=== PATIENT | male | born 1955 | race Caucasian/White ===

== ENCOUNTER 2016-12-11 21:53 | Emergency (ER) | payer OTHER ==
--- NOTE | ~2016-12-11 | CR72 ---
[facility] A Service of [facility] & [facility] RADIOLOGY TEXT RESULTS PATIENT: RISA ADAM LOCATION: [facility] : 53 UNIT #: [id number] AGE: [address]: Sonny Lynch MD SEX: M ORDER DR: [id number] [facility] [address] [place], [place] [address] [id number] MR#: [id number] Acc #: [id number] NAME: RISA ADAM. : 1955 SEX: M STUDY DATE/TIME: UNIT: [facility] ROOM: STUDY DESCRIPTION: CR Chest Single View Portable Attending Physician: Sonny Lynch M.D. Ordering Physician: Sonny Lynch M.D. Primary Care Physician: [facility] MEDICAL IMAGING REPORT This report is preliminary unless electronic signature is present EXAM Chest portable 12/11 at 2203 hours INDICATIONS Syncope with shortness of air and weakness. Patient had syncopal episode at 09:00 p.m. this evening. History of coronary artery disease and hypertension. FINDINGS AP portable chest is compared with 11/02/2016. Cardiac and mediastinal contours remain normal. The lungs are clear. No pneumothorax. There is some mild atherosclerotic disease in the aorta. IMPRESSION No active disease. Dictated by... Lamberto Packer Jr., M.D. THIS IS AN ELECTRONICALLY VERIFIED REPORT Lamberto Packer Jr., M.D. at 12/12/2016 12:35 PM RLK/to TD: 12/12/2016 11:25 JOB #: [id number] MEDICAL IMAGING REPORT COPY
--- NOTE | ~2016-12-11 | EKG ---
PATIENT: RISA ADAM UNIT #: [id number] Ventricular Rate: 82 BPM Atrial Rate: 82 BPM P-R Interval: 162 ms QRS Duration: 90 ms Q-T Interval: 400 ms QTC Calculation(Bezet): 467 ms P [place]: 37 degrees Calculated R [place]: 32 degrees Calculated T [place]: 45 degrees Diagnosis Line: Normal sinus rhythm Diagnosis Line: Normal ECG Diagnosis Line: When compared with ECG of 02-NOV-2016 19:46, Diagnosis Line: No significant change was found Diagnosis Line: Confirmed by DEMETRICE SANCHEZ MD ([id number]) on Diagnosis Line: 12/13/2016 4:05:59 PM INTERPRETING MD: DANIEL MCCANN
--- NOTE | ~2016-12-11 | CT71 ---
[facility] A Service of [facility] RADIOLOGY TEXT RESULTS PATIENT: RISA ADAM LOCATION: [facility] : 53 UNIT #: [id number] AGE: [address]: Sonny Lynch MD SEX: M ORDER DR: [id number] [facility] [address] [place], [place] [address] [id number] E MR#: [id number] Acc #: [id number] NAME: RISA ADAM. : 1955 SEX: M STUDY DATE/TIME: 12/11/2016 2250 UNIT: [facility] ROOM: STUDY DESCRIPTION: CT Head Wo Contrast Attending Physician: Sonny Lynch M.D. Ordering Physician: Sonny Lynch M.D. [facility] REPORT This report is preliminary unless electronic signature is present EXAM Head CT 12/11/2016 at 22:50 INDICATIONS Syncopal episode 30 minutes prior to arrival at the Emergency Department today. History of cardiac disease, hypertension and stroke. TECHNIQUE Axial images were obtained from the base to vertex without contrast. This CT exam was performed with one or more of the following radiation dose reduction techniques: automatic exposure control, adjustment of mA and/or kV according to patient size, and iterative reconstruction. COMPARISON STUDIES Comparison is made with 11/02/2016. FINDINGS Ventricular size and configuration remain normal. There is mild degree of chronic small vessel ischemic change in the white matter. There is no acute infarct or hemorrhage. There are no masses. There are no skull fractures. There are some atherosclerotic calcifications in the carotid siphons. The previously seen fluid level in the left maxillary sinus has resolved. IMPRESSION No acute intracranial abnormalities. Exam is not significantly changed from prior except that the fluid level in the left maxillary sinus has resolved. Dictated by... Lamberto Packer Jr., M.D. [facility] A Service of [facility] RADIOLOGY TEXT RESULTS PATIENT: RISA ADAM LOCATION: [facility] : 53 UNIT #: [id number] AGE: [address]: Sonny Lynch MD SEX: M ORDER DR: THIS IS AN ELECTRONICALLY VERIFIED REPORT Lamberto Packer Jr., M.D. at 12/12/2016 12:35 PM SABAS/vladislav TD: 12/12/2016 11:49 JOB #: [id number] MEDICAL IMAGING REPORT COPY
[~2016-12-11 21:53] MED LIST: ALDACTAZIDE PO; AMITRIPTYLINE100 MG PO; AMITRYPTYLINE; AMITRYPTYLINE PO; ASPIRIN EC81 M1 PO; ASPIRIN81 M1 PO; ASPIRIN81 M2 PO; ATENOLOL50 MG PO; BP MED; BRILINTA90 MG PO; CARVEDILOL3.125 MG PO; CATAPRES-TTS-10.1 M1 EXT; CLOPIDOGREL75 MG PO; COREG3.125 MG PO; COREG6.25 MG PO; CYANOCOBALAM1000 MCG PO; DEPAKOTE PO; DEPAKOTE250 MG PO; DESYREL50 M1 PO; DESYREL50 MG PO; DIGOXIN125 MCG PO; DIVALPROEX SOD500 MG PO; DOXYCYCLINE PO; FISH OIL 1,0001 CA2 PO; FISH OIL 1,001000 M1 PO; FLEXERIL10 M1 PO; FLEXERIL10 MG PO; GABAPENTIN300 M2 PO; GABAPENTIN600 MG PO; GABAPENTIN800 MG PO; GLUCOPHAGE500 M1 PO; HCTZ; HYDROCHLOROTHIA25 MG PO; HYDROCODON-ACE1 EACH PO; IBUPROFEN; IBUPROFEN600 MG PO; IMDUR-ER30 M1 PO; IMDUR30 MG PO; IRON SUPPLEMENT1 TAB PO; K-DUR10 MEQ PO; KCL PO; LISINOPRIL-HCTZ1 T15 PO; LISINOPRIL10 MG PO; LISINOPRIL20 MG PO; LOPID600 MG PO; LORTAB 5/500 TA1 TA1 PO; LORTAB 7.5-5001 TAB PO; METFORMIN HCL500 M3 PO; MICRO-K10 ME1 PO; MOTRIN400 M1 PO; MOTRIN600 M1 PO; NAPROSYN500 MG PO; NAPROXEN PO; NEURONTIN; NEURONTIN800 MG PO; NICOTINE TRANSD14 MG EXT; NITROGLYCERIN0.4 MG SL; NITROGLYGERIN0.4 MG SL; NITROSTAT0.4 MG SL; PLAVIX PO; POTASSIUM CHLO10 ME1 PO; POTASSIUM CHLO20 ME1 PO; PRAVASTATIN SOD40 MG PO; SIMVASTATIN20 MG PO; TENORMIN50 MG PO; TRAMADOL HCL50 M2 PO; ULTRAM PO; VITAMIN B122500 MCG PO; VOLTAREN75 MG PO
[2016-12-11 22:05] LABS: BASOPHIL# 0.1 X10e3 (0-0.3); BASOPHIL% 0.9 % (0-2.5); EOSINOPHIL# 0.1 X10e3 (0-0.7); EOSINOPHIL% 1.7 % (0.0-7.0); HEMATOCRIT 40.9 % (38.0-50.0); HEMOGLOBIN 13.2 gm/dL (13.0-16.0); LYMPHOCYTE# 1.5 X10e3 (1.0-3.5); LYMPHOCYTE% 18.8 % (17.0-45.0); MEAN CELL VOLUME 75.4 FL (83-96); MEAN CORPUSCULAR HEMOGLOBIN 24.3 PG (28-34); MEAN CORPUSCULAR HGB CONC 32.3 g/dL (30-36); MONOCYTE# 0.7 X10e3 (0-1.0); MONOCYTE% 8.8 % (3.0-12.0); NEUTROPHIL# 5.4 X10e3 (1.5-7.1); NEUTROPHIL% 69.8 % (40-75); PLATELET COUNT 207 X10e3 (140-420); RED BLOOD COUNT 5.43 X10e (3.90-5.60); RED CELL DISTRIBUTION WIDTH 18.5 % (11.0-15.5); WHITE BLOOD COUNT 7.8 X10e3 (4.0-10.5)
[2016-12-11 22:11] LABS: POC - TROPONIN <0.05 ng/mL (<=0.05)
[2016-12-11 22:12] LABS: DIFF IND NO
[2016-12-11 22:21] LABS: PARTIAL THROMBOPLASTIN TIME 25.4 SECONDS (23.5-31.3)
[2016-12-11 22:28] LABS: ALBUMIN SERUM 4.6 g/dL (3.5-5.0); ALCOHOL BLOOD <5 mg/dL (0); ALKALINE PHOSPHATASE 90 U/L (32-92); ALT (SGPT) 26 U/L (10-40); AST (SGOT) 27 U/L (10-42); BILIRUBIN, DIRECT 0.1 mg/dL (0.0-0.2); BILIRUBIN,INDIRECT 0.6 mg/dL (0.0-0.9); BILIRUBIN,TOTAL 0.7 mg/dL (0.2-2.0); BLOOD UREA NITROGEN 9 mg/dL (9-23); BUN/CREATININE RATIO 11.25; CALCIUM SERUM 9.5 mg/dL (8.4-10.2); CARBON DIOXIDE 27 mmol/L (22-31); CHLORIDE 100 mmol/L (100-111); CREATININE SERUM 0.8 mg/dL (0.6-1.4); GLOM FILT RATE Estimated ABOVE60 mL/min (>60); GLUCOSE FASTING 106 mg/dL (70-110); POTASSIUM 3.7 mmol/L (3.5-5.1); PROTEIN TOTAL SERUM 7.8 g/dL (6.0-8.3); SODIUM 136 mmol/L (135-145)
[2016-12-12 00:05] LABS: AMPHETAMINE NEG (NEG); BARBITURATES NEG (NEG); BENZODIAZEPINES NEG (NEG); COCAINE NEG (NEG); MARIJUANA NEG (NEG); OPIATES NEG (NEG); TRICYCLIC ANTIDEPRESSANTS NEG (NEG); U METHADONE NEG (NEG)
[2016-12-12 00:20] LABS: POC - CKMB 1.9 ng/mL (0.0-7.9); POC - TROPONIN <0.05 ng/mL (<=0.05)
== END 2016-12-12 00:20 | disposition home or self-care (01) ==
LOC: CED 21:53
PROVIDERS: Emergency Medicine
DX: R55 Syncope and collapse (principal); I10 Essential (primary) hypertension; F31.9 Bipolar disorder, unspecified; F17.210 Nicotine dependence, cigarettes, uncomplicated; Z88.0 Allergy status to penicillin; Z88.1 Allergy status to other antibiotic agents; Z79.82 Long term (current) use of aspirin; Z79.899 Other long term (current) drug therapy
CPT/HCPCS: 36415; 70450; 71010; 80048; 80076; 80307; 82553; 82947; 84484; 85025; 85610; 85730; 93005; 96360; 99284; G0480

== ENCOUNTER 2017-03-19 00:26 | Emergency (ER) | payer OTHER ==
--- NOTE | ~2017-03-19 | EKG ---
PATIENT: RISA ADAM UNIT #: [id number] Ventricular Rate: 88 BPM Atrial Rate: 88 BPM P-R Interval: 196 ms QRS Duration: 92 ms Q-T Interval: 400 ms QTC Calculation(Bezet): 484 ms P [place]: 33 degrees Calculated R [place]: 25 degrees Calculated T [place]: 23 degrees Diagnosis Line: Normal sinus rhythm Diagnosis Line: Prolonged QT Diagnosis Line: Abnormal ECG Diagnosis Line: When compared with ECG of 11-DEC-2016 22:23, Diagnosis Line: No significant change was found Diagnosis Line: Confirmed by MEGHANN URIBE MD ([id number]) on 03/19/2017 Diagnosis Line: 4:49:56 PM INTERPRETING MD: RONY MCCANN
--- NOTE | ~2017-03-19 | CR72 ---
[facility] A Service of [facility] & [facility] RADIOLOGY TEXT RESULTS PATIENT: RISA ADAM LOCATION: [facility] : 53 UNIT #: [id number] AGE: [address]: Bran Mack SEX: M ORDER DR: [id number] [facility] [address] [place], [place] [address] [id number] E MR#: [id number] Acc #: [id number] NAME: RISA ADAM : 1955 SEX: M STUDY DATE/TIME: 03/19/2017 2:38 UNIT: [facility] ROOM: STUDY DESCRIPTION: CR Chest Single View Portable Attending Physician: Bran Mack P.A.-C. Ordering Physician: Bran Mack P.A.-C. Primary Care Physician: [facility] MEDICAL IMAGING REPORT This report is preliminary unless electronic signature is present EXAM Portable chest HISTORY Chest pain since 8 a.m. yesterday 03/19 COMPARISON 12/11/2016 FINDINGS A portable view of the chest was obtained. The heart size and vascularity and the lungs are clear and the bones are normal. IMPRESSION No active disease. Dictated by... Philip Sellers M.D. THIS IS AN ELECTRONICALLY VERIFIED REPORT Philip Sellers M.D. at 03/19/2017 1:52 PM FEL/to TD: 03/19/2017 12:10 JOB #: [id number] MEDICAL IMAGING REPORT Page 1 of 1 COPY
[2017-03-19 02:37] LABS: BASOPHIL# 0.1 X10e3 (0-0.3); BASOPHIL% 0.8 % (0-2.5); EOSINOPHIL# 0.1 X10e3 (0-0.7); EOSINOPHIL% 1.2 % (0.0-7.0); HEMATOCRIT 39.8 % (38.0-50.0); HEMOGLOBIN 12.6 gm/dL (13.0-16.0); LYMPHOCYTE# 1.8 X10e3 (1.0-3.5); LYMPHOCYTE% 23.4 % (17.0-45.0); MEAN CELL VOLUME 77.7 FL (83-96); MEAN CORPUSCULAR HEMOGLOBIN 24.6 PG (28-34); MEAN CORPUSCULAR HGB CONC 31.7 g/dL (30-36); MEAN PLATELET VOLUME 8.3 FL (6.5-11.5); MONOCYTE# 0.6 X10e3 (0-1.0); NEUTROPHIL# 5.1 X10e3 (1.5-7.1); NEUTROPHIL% 66.6 % (40-75); PLATELET COUNT 176 X10e3 (140-420); RED BLOOD COUNT 5.12 X10e (3.90-5.60); RED CELL DISTRIBUTION WIDTH 17.4 % (11.0-15.5); WHITE BLOOD COUNT 7.6 X10e3 (4.0-10.5)
[2017-03-19 02:47] LABS: DIFF IND NO
[2017-03-19 02:48] LABS: POC - CKMB 2.4 ng/mL (0.0-7.9); POC - TROPONIN <0.05 ng/mL (<=0.05)
[2017-03-19 02:52] LABS: PARTIAL THROMBOPLASTIN TIME 25.7 SECONDS (23.5-31.3)
[2017-03-19 03:00] LABS: ALBUMIN SERUM 4.3 g/dL (3.5-5.0); ALKALINE PHOSPHATASE 81 U/L (32-92); ALT (SGPT) 37 U/L (10-40); AST (SGOT) 27 U/L (10-42); BILIRUBIN,TOTAL 0.4 mg/dL (0.2-2.0); BLOOD UREA NITROGEN 9 mg/dL (9-23); BUN/CREATININE RATIO 11.25; CALCIUM SERUM 9.5 mg/dL (8.4-10.2); CARBON DIOXIDE 25 mmol/L (22-31); CHLORIDE 108 mmol/L (100-111); CREATININE SERUM 0.8 mg/dL (0.6-1.4); GLOM FILT RATE Estimated 95.1 mL/min (>60); GLUCOSE FASTING 127 mg/dL (70-110); MAGNESIUM 2.2 mg/dL (1.6-3.0); POTASSIUM 3.6 mmol/L (3.5-5.1); PROTEIN TOTAL SERUM 7.2 g/dL (6.0-8.3); SODIUM 139 mmol/L (135-145)
[2017-03-19 03:01] LABS: BILIRUBIN, DIRECT <0.1 mg/dL (0.0-0.2); BILIRUBIN,INDIRECT 0.3 mg/dL (0.0-0.9)
[2017-03-19 04:40] LABS: POC - CKMB 1.7 ng/mL (0.0-7.9); POC - TROPONIN <0.05 ng/mL (<=0.05)
== END 2017-03-19 05:58 | disposition home or self-care (01) ==
LOC: CED 00:26
PROVIDERS: Physician Assistant
DX: R07.89 Other chest pain (principal); E78.5 Hyperlipidemia, unspecified; I10 Essential (primary) hypertension; I25.2 Old myocardial infarction; F17.210 Nicotine dependence, cigarettes, uncomplicated; Z88.0 Allergy status to penicillin; Z88.1 Allergy status to other antibiotic agents; Z79.899 Other long term (current) drug therapy
CPT/HCPCS: 36415; 71010; 80048; 80076; 82553; 83735; 83880; 84484; 85025; 85610; 85730; 93005; 99285

== ENCOUNTER 2017-03-25 16:34 | Inpatient (IN) | payer OTHER ==
--- NOTE | ~2017-03-25 | HP ---
Unit #: [id number] #: [id number] Patient: RISA ADAM [id number] [facility]. [address] [place], [place] [address] [id number] I MR#: [id number] NAME: RISA ADAM. ROOM: 304 Age: 61 Sex: M Admission Date: 03/25/2017 : 1955 Attending Physician: Jl Figueredo M.D. Primary Care Physician: [facility]. HISTORY AND PHYSICAL CHIEF COMPLAINT Chest pain. HISTORY OF PRESENT ILLNESS This is a 61-year-old male who is known to Dr. Delong with a prior medical history of coronary artery disease, status post PTCA and stent to his RCA in December 2011. His most recent cardiac cath done on February 29, 2016, showed normal left main, LAD proximal 40%, left circumflex one-third marginal with plaquing, mid RCA 75% with a fractionated flow reserve of 0.84. The patient was treated medically. He also has a history of hypertension, hyperlipidemia, diabetes mellitus, tobacco abuse, and a prior CVA. In addition, he has a history of syncope with a positive tilt table. An echocardiogram done in January 2014 showed his EF to be 60% with no wall abnormalities and mild mitral regurgitation. He presented to the ER with chest pain. He states that Monday night he had some chest tightness that he thought was indigestion, and it resolved with Zantac. Monday afternoon he was walking in his living room and he broke out in a sweat. In addition, he had nausea and midsternal chest pressure that spread into his left chest. He called EMS and presented to the ER. His chest pain resolved in the ER with nitroglycerin and has not recurred since then. His troponins are elevated. His most recent troponin was 1.2. His EKG showed no acute ischemic changes. PAST MEDICAL HISTORY 1. Coronary artery disease, status post PTCA and stent to the RCA in December 2011. 2. Cardiac cath on February 29, 2016, showed left main normal, LAD proximal 40%, left circumflex one-third marginal with plaquing, and mid RCA 75% with FFR 0.84. 3. Hypertension. 4. Hyperlipidemia. 5. Diabetes mellitus. 6. Tobacco abuse. 7. Cerebrovascular accident. 8. Bipolar disorder. 9. Syncope with positive tilt table. 10. Lexiscan Cardiolite stress test on October 16, 2015, showed no stress-induced ischemia. PAST SURGICAL HISTORY 1. Right leg surgery. 2. Left hand surgery. 3. Tonsillectomy. Unit #: [id number] #: [id number] Patient: RISA ADAM 4. Multiple skin grafts. 5. Cardiac catheterization with PTCA and drug-eluting stent. SOCIAL HISTORY Patient is and lives with his . He has smoked a half pack to one pack per day for 48 years. Occasional alcohol use. Denies illicit drug use. FAMILY HISTORY Denies a family history of premature coronary artery disease. ALLERGIES Penicillin and amoxicillin. HOME MEDICATIONS 1. Aspirin 81 mg once daily. 2. Desyrel 50 mg p.o. at bedtime. 3. Norvasc 5 mg p.o. at bedtime. 4. Lisinopril 40 mg daily. 5. Coreg 25 mg twice daily. 6. Gabapentin 300 mg twice daily. 7. Plavix 75 mg p.o. daily. 8. Pravastatin 40 mg p.o. daily. 9. Lasix 40 mg p.o. daily. REVIEW OF SYSTEMS Positive for nausea, diaphoresis, chest pain, weakness, and fatigue. Otherwise, negative except for what was stated in the History of Present Illness. PHYSICAL EXAMINATION VITAL SIGNS: Temperature 98.5, heart rate 68, respiratory rate 16, O2 saturation 98% on two liters, and blood pressure 98/56. Height 61 inches, weight 104 kg. GENERAL: Alert and oriented 61-year-old male resting in bed in no acute distress. HEENT: Head is atraumatic and normocephalic. Pupils are equal and round. Mucous membranes are moist. NECK: Supple. Trachea is midline. Negative for JVD. CARDIOVASCULAR: S1 and S2, regular rate and rhythm. Heart tones are very distant. LUNGS: Clear and diminished in bases. Nonlabored respirations. ABDOMEN: Soft, nontender, and nondistended. EXTREMITIES: Pulses are palpable 1+. No pedal edema. No cyanosis. NEUROLOGIC: Alert and oriented x3. Moves all extremities equally and follows commands without difficulty. DIAGNOSTIC STUDIES LABORATORY: Sodium 136, potassium 3.3, chloride 104, BUN 15, creatinine 0.8, and glucose 155. Hemoglobin 11.7, hematocrit 37, white blood cell count 7.4, and platelets 161,000. PT 10.5 and INR 1. AST 28, ALT 38, and alkaline phosphatase 91. BNP 9. Point of care troponin less than 0.05. Troponin on March 25, 2017, at 8 p.m., was 0.13, at midnight 0.8, and on March 26, 2017, was 1.2. IMAGING: Chest x-ray showed no acute findings. CARDIOLOGY: EKG in the ER showed sinus tachycardia with ventricular rate Unit #: [id number] #: [id number] Patient: RISA ADAM T of 102 and nonspecific T wave abnormalities. EKG on March 26, 2017, showed normal sinus rhythm with nonspecific T wave abnormalities. ASSESSMENT 1. Acute non-ST segment myocardial infarction. 2. Hypokalemia. 3. Coronary artery disease, status post percutaneous transluminal coronary angioplasty and stent to right coronary artery. 4. Left ventricular ejection fraction 60% per echocardiogram in January 2014. 5. Hyperlipidemia. 6. Diabetes mellitus. 7. History of hypertension, now hypotensive. 8. Tobacco abuse, heavy smoker. PLAN 1. Send for cardiac cath. 2. Discontinue Norvasc. 3. Continue heparin drip. 4. Start Integrilin drip. 5. Replace potassium. 6. Check lipid profile. 7. CBC, BMP, troponin, and EKG in the a.m. 8. Discuss smoking cessation with patient. 9. Continue aspirin, Plavix, Lasix, statin, beta ch[place], and nitroglycerin paste as previously ordered. 1. Dictated by Pebbles Ramírez APRN for Jonelle Fontana TD: 03/26/2017 14:11 JOB #: [id number] HISTORY AND PHYSICAL Page 1 of 1 X X HISTORY AND PHYSICAL
--- NOTE | ~2017-03-25 | EKG ---
PATIENT: RISA ADAM UNIT #: [id number] Ventricular Rate: 68 BPM Atrial Rate: 68 BPM P-R Interval: 202 ms QRS Duration: 88 ms Q-T Interval: 438 ms QTC Calculation(Bezet): 465 ms P [place]: 41 degrees Calculated R [place]: 38 degrees Calculated T [place]: 41 degrees Diagnosis Line: Normal sinus rhythm Diagnosis Line: Normal ECG Diagnosis Line: When compared with ECG of 27-MAR-2017 05:48, Diagnosis Line: (unconfirmed) Diagnosis Line: No significant change was found Diagnosis Line: Confirmed by KELIN UGALDE MD ([id number]) on Diagnosis Line: 03/27/2017 10:10:28 PM INTERPRETING MD: YARITZA
--- NOTE | ~2017-03-25 | EKG ---
PATIENT: RISA ADAM UNIT #: [id number] Ventricular Rate: 70 BPM Atrial Rate: 70 BPM P-R Interval: 198 ms QRS Duration: 84 ms Q-T Interval: 408 ms QTC Calculation(Bezet): 440 ms P [place]: 46 degrees Calculated R [place]: 25 degrees Calculated T [place]: 27 degrees Diagnosis Line: Normal sinus rhythm Diagnosis Line: Normal ECG Diagnosis Line: When compared with ECG of 27-MAR-2017 09:48, Diagnosis Line: No significant change was found Diagnosis Line: Confirmed by KELIN UGALDE MD ([id number]) on Diagnosis Line: 03/28/2017 10:40:36 PM INTERPRETING MD: YARITZA
--- NOTE | ~2017-03-25 | EKG ---
PATIENT: RISA ADAM UNIT #: [id number] Ventricular Rate: 68 BPM Atrial Rate: 68 BPM P-R Interval: 194 ms QRS Duration: 84 ms Q-T Interval: 446 ms QTC Calculation(Bezet): 474 ms P [place]: 34 degrees Calculated R [place]: 26 degrees Calculated T [place]: 49 degrees Diagnosis Line: Normal sinus rhythm Diagnosis Line: Nonspecific T wave abnormality Diagnosis Line: Prolonged QT Diagnosis Line: Abnormal ECG Diagnosis Line: When compared with ECG of 25-MAR-2017 16:45, Diagnosis Line: (unconfirmed) Diagnosis Line: Vent. rate has decreased BY 34 BPM Diagnosis Line: ST no longer depressed in Lateral leads Diagnosis Line: Nonspecific T wave abnormality has replaced Diagnosis Line: inverted T waves in Lateral leads Diagnosis Line: Confirmed by MELONIE MCCANN, BRI ([id number]) on Diagnosis Line: 03/26/2017 11:11:22 AM INTERPRETING MD: HONORIO
--- NOTE | ~2017-03-25 | EKG ---
PATIENT: RISA ADAM UNIT #: [id number] Ventricular Rate: 76 BPM Atrial Rate: 76 BPM P-R Interval: 202 ms QRS Duration: 90 ms Q-T Interval: 428 ms QTC Calculation(Bezet): 481 ms P [place]: 58 degrees Calculated R [place]: 15 degrees Calculated T [place]: 14 degrees Diagnosis Line: Normal sinus rhythm Diagnosis Line: Prolonged QT Diagnosis Line: Abnormal ECG Diagnosis Line: When compared with ECG of 26-MAR-2017 05:49, Diagnosis Line: No significant change was found Diagnosis Line: Confirmed by KELIN UGALDE MD ([id number]) on Diagnosis Line: 03/27/2017 10:09:04 PM INTERPRETING MD: YARITZA
--- NOTE | ~2017-03-25 | CR72 ---
[facility] A Service of [facility] & [facility] RADIOLOGY TEXT RESULTS PATIENT: RISA ADAM LOCATION: [facility] 304- : 53 UNIT #: [id number] AGE: [address]: Jl Figueredo MD SEX: M ORDER DR: [id number] [facility] [address] [place], [place] [address] [id number] I MR#: [id number] Acc #: [id number] NAME: RISA ADAM. : 1955 SEX: M STUDY DATE/TIME: 03/25/2017 17:31 UNIT: [address] ROOM: [facility] STUDY DESCRIPTION: CR Chest Single View Portable Attending Physician: Jl Figueredo M.D. Referring Physician: Kirt Bishop M.D. Ordering Physician: Irving Justice M.D. [facility] REPORT This report is preliminary unless electronic signature is present EXAM Portable chest. HISTORY Chest pain and shortness of air and weakness since yesterday. FINDINGS Cardiac size and pulmonary vascularity are normal. Mildly tortuous descending thoracic aorta. No airspace infiltrates or effusions. IMPRESSION No acute findings. Dictated by... Patrice Pedro M.D. THIS IS AN ELECTRONICALLY VERIFIED REPORT Patrice Pedro M.D. at 03/25/2017 10:53 PM GERONIMO/rai TD: 03/25/2017 22:24 JOB #: [id number] MEDICAL IMAGING REPORT Page 1 of 1 COPY
--- NOTE | ~2017-03-25 | EKG ---
PATIENT: RISA ADAM UNIT #: [id number] Ventricular Rate: 102 BPM Atrial Rate: 102 BPM P-R Interval: 164 ms QRS Duration: 86 ms Q-T Interval: 346 ms QTC Calculation(Bezet): 450 ms P [place]: 40 degrees Calculated R [place]: 29 degrees Calculated T [place]: 110 degrees Diagnosis Line: Sinus tachycardia Diagnosis Line: Possible Left atrial enlargement Diagnosis Line: ST and T wave abnormality, consider lateral ischemia Diagnosis Line: Abnormal ECG Diagnosis Line: When compared with ECG of 19-MAR-2017 01:02, Diagnosis Line: ST now depressed in Lateral leads Diagnosis Line: T wave inversion now evident in Lateral leads Diagnosis Line: Confirmed by BRI WILHELM MD ([id number]) on Diagnosis Line: 03/26/2017 11:08:32 AM INTERPRETING MDKathleen OLMEDO
[2017-03-25 17:33] LABS: POC - CKMB 2.9 ng/mL (0.0-7.9); POC - TROPONIN <0.05 ng/mL (<=0.05)
[2017-03-25 17:48] LABS: BASOPHIL# 0.1 X10e3 (0-0.3); BASOPHIL% 0.7 % (0-2.5); EOSINOPHIL# 0.1 X10e3 (0-0.7); EOSINOPHIL% 0.7 % (0.0-7.0); HEMATOCRIT 41.2 % (38.0-50.0); HEMOGLOBIN 13.2 gm/dL (13.0-16.0); LYMPHOCYTE# 1.1 X10e3 (1.0-3.5); LYMPHOCYTE% 12.5 % (17.0-45.0); MEAN CELL VOLUME 77.6 FL (83-96); MEAN CORPUSCULAR HEMOGLOBIN 24.8 PG (28-34); MEAN CORPUSCULAR HGB CONC 31.9 g/dL (30-36); MEAN PLATELET VOLUME 8.4 FL (6.5-11.5); MONOCYTE# 0.6 X10e3 (0-1.0); MONOCYTE% 6.9 % (3.0-12.0); NEUTROPHIL% 79.2 % (40-75); PLATELET COUNT 176 X10e3 (140-420); RED BLOOD COUNT 5.32 X10e (3.90-5.60); RED CELL DISTRIBUTION WIDTH 17.5 % (11.0-15.5); WHITE BLOOD COUNT 8.8 X10e3 (4.0-10.5)
[2017-03-25 17:50] LABS: DIFF IND NO
[2017-03-25 17:54] LABS: PARTIAL THROMBOPLASTIN TIME 26.6 SECONDS (23.5-31.3); PROTHROMBIN TIME (PATIENT) 10.5 SECONDS (10.0-11.7)
[2017-03-25 18:20] LABS: ALBUMIN SERUM 4.7 g/dL (3.5-5.0); BILIRUBIN, DIRECT 0.1 mg/dL (0.0-0.2); BILIRUBIN,TOTAL 1.1 mg/dL (0.2-2.0); BUN/CREATININE RATIO 18.75; CALCIUM SERUM 9.3 mg/dL (8.4-10.2); CREATININE SERUM 0.8 mg/dL (0.6-1.4); GLOM FILT RATE Estimated 95.1 mL/min (>60); POTASSIUM 3.3 mmol/L (3.5-5.1); PROTEIN TOTAL SERUM 7.5 g/dL (6.0-8.3)
[2017-03-25 19:13] LABS: POC - CKMB 1.9 ng/mL (0.0-7.9); POC - TROPONIN <0.05 ng/mL (<=0.05)
[2017-03-25] MEDS ORDERED: PRAVASTATIN SOD40 MG PO (19:52)
[2017-03-25] MEDS ORDERED: CARVEDILOL25 MG PO (19:52)
[2017-03-25] MEDS ORDERED: CLOPIDOGREL75 MG PO (19:52)
[2017-03-25] MEDS ORDERED: AMLODIPINE BESYL5 MG PO (19:52)
[2017-03-25] MEDS ORDERED: CHEWABLE ASPIRI81 MG PO (19:52)
[2017-03-25] MEDS ORDERED: PRINIVIL40 MG PO (19:52)
[2017-03-25] MEDS ORDERED: DESYREL50 MG PO (19:52)
[2017-03-25] MEDS ORDERED: LASIX PO (19:52)
[2017-03-25] MEDS ORDERED: GABAPENTIN300 M2 PO (19:52)
[2017-03-26 03:39] LABS: BASOPHIL# 0.1 X10e3 (0-0.3); EOSINOPHIL# 0.1 X10e3 (0-0.7); EOSINOPHIL% 1.8 % (0.0-7.0); HEMOGLOBIN 11.7 gm/dL (13.0-16.0); LYMPHOCYTE# 1.6 X10e3 (1.0-3.5); LYMPHOCYTE% 22.1 % (17.0-45.0); MEAN CELL VOLUME 78.3 FL (83-96); MEAN CORPUSCULAR HEMOGLOBIN 24.8 PG (28-34); MEAN CORPUSCULAR HGB CONC 31.6 g/dL (30-36); MEAN PLATELET VOLUME 8.4 FL (6.5-11.5); MONOCYTE# 0.8 X10e3 (0-1.0); MONOCYTE% 10.9 % (3.0-12.0); NEUTROPHIL# 4.8 X10e3 (1.5-7.1); NEUTROPHIL% 64.2 % (40-75); PLATELET COUNT 161 X10e3 (140-420); RED BLOOD COUNT 4.73 X10e (3.90-5.60); RED CELL DISTRIBUTION WIDTH 17.9 % (11.0-15.5); WHITE BLOOD COUNT 7.4 X10e3 (4.0-10.5)
[2017-03-26 03:40] LABS: DIFF IND NO
[2017-03-26 09:43] LABS: CHOLESTEROL 192 mg/dL (0-200); HDL CHOLESTEROL 27 mg/dL (29-75); LDL CHOLESTEROL 115 mg/dL (-130); LDL/HDL RATIO 4 RATIO (0-4); TRIGLYCERIDES 249 mg/dL (10-160)
[2017-03-26 18:32] LABS: BASOPHIL# 0.1 X10e3 (0-0.3); BASOPHIL% 0.9 % (0-2.5); EOSINOPHIL# 0.2 X10e3 (0-0.7); EOSINOPHIL% 2.4 % (0.0-7.0); HEMATOCRIT 36.5 % (38.0-50.0); HEMOGLOBIN 11.7 gm/dL (13.0-16.0); LYMPHOCYTE# 1.9 X10e3 (1.0-3.5); LYMPHOCYTE% 26.4 % (17.0-45.0); MEAN PLATELET VOLUME 8.7 FL (6.5-11.5); MONOCYTE# 0.5 X10e3 (0-1.0); MONOCYTE% 7.5 % (3.0-12.0); NEUTROPHIL# 4.5 X10e3 (1.5-7.1); NEUTROPHIL% 62.8 % (40-75); PLATELET COUNT 188 X10e3 (140-420); RED BLOOD COUNT 4.68 X10e (3.90-5.60); RED CELL DISTRIBUTION WIDTH 17.8 % (11.0-15.5); WHITE BLOOD COUNT 7.2 X10e3 (4.0-10.5)
[2017-03-26 18:35] LABS: DIFF IND NO
[2017-03-27 02:43] LABS: HEMATOCRIT 34.2 % (38.0-50.0); HEMOGLOBIN 10.8 gm/dL (13.0-16.0); MEAN CELL VOLUME 78.7 FL (83-96); MEAN CORPUSCULAR HEMOGLOBIN 24.8 PG (28-34); MEAN CORPUSCULAR HGB CONC 31.5 g/dL (30-36); MEAN PLATELET VOLUME 8.4 FL (6.5-11.5); RED BLOOD COUNT 4.34 X10e (3.90-5.60); RED CELL DISTRIBUTION WIDTH 17.3 % (11.0-15.5); WHITE BLOOD COUNT 6.5 X10e3 (4.0-10.5)
[2017-03-27 03:18] LABS: BUN/CREATININE RATIO 23.75; CALCIUM SERUM 8.7 mg/dL (8.4-10.2); CREATININE SERUM 0.8 mg/dL (0.6-1.4); GLOM FILT RATE Estimated 95.1 mL/min (>60); POTASSIUM 3.5 mmol/L (3.5-5.1)
[2017-03-27 18:38] LABS: INR 0.9; PARTIAL THROMBOPLASTIN TIME 25.4 SECONDS (23.5-31.3)
[2017-03-27 19:13] LABS: ANGIO %MB 1.5 % (0.0-4.0); ANGIO MB 4.9 ng/ml
[2017-03-28 01:44] LABS: BUN/CREATININE RATIO 16.25; CALCIUM SERUM 8.8 mg/dL (8.4-10.2); CREATININE SERUM 0.8 mg/dL (0.6-1.4); GLOM FILT RATE Estimated 95.1 mL/min (>60); POTASSIUM 3.9 mmol/L (3.5-5.1)
[2017-03-28 02:06] LABS: ANGIO %MB 1.2 % (0.0-4.0)
[2017-03-28] MEDS ORDERED: LIPITOR40 MG PO (10:16)
== END 2017-03-28 13:53 | disposition home or self-care (01) | DRG 247 ==
LOC: CED 16:34 → CEDOF 19:10 → CED 19:37 → CEDOF 19:37 → C3A PCU 19:37 → CEDOF 21:52 → C3A PCU 21:52 → CEDOF 03-26 10:00 → C3A PCU 03-26 10:00 → CED 03-26 10:00 → C5C 03-27 12:39
PROVIDERS: Emergency Medicine; Internal Medicine Cardiovascular Disease; Internal Medicine Interventional Cardiology
PROC: 027034Z Dilation of Coronary Artery, One Artery with Drug-eluting Intraluminal Device, Percutaneous Approach (ICD-10-PCS; principal; 2017-03-27)
DX: I21.4 Non-ST elevation (NSTEMI) myocardial infarction (principal); I10 Essential (primary) hypertension; F17.210 Nicotine dependence, cigarettes, uncomplicated; E78.5 Hyperlipidemia, unspecified; F31.9 Bipolar disorder, unspecified; J44.9 Chronic obstructive pulmonary disease, unspecified; Z86.73 Personal history of transient ischemic attack (TIA), and cerebral infarction without residual deficits; E11.9 Type 2 diabetes mellitus without complications; Z88.0 Allergy status to penicillin; Z79.02 Long term (current) use of antithrombotics/antiplatelets; Z79.82 Long term (current) use of aspirin; E87.6 Hypokalemia; Z71.6 Tobacco abuse counseling
CPT/HCPCS: 36415; 71010; 80048; 80061; 80076; 82550; 82553; 83880; 84484; 85025; 85027; 85347; 85610; 85730; 93005; 99285; C1725; C1769; C1874; C1894; J0360; J0461; J1170; J1327; J1644; J2250; J2405; J3010

== ENCOUNTER 2017-05-21 01:52 | Emergency (ER) | payer OTHER ==
--- NOTE | ~2017-05-21 | EKG ---
PATIENT: RISA ADAM UNIT #: [id number] Ventricular Rate: 98 BPM Atrial Rate: 98 BPM P-R Interval: 182 ms QRS Duration: 82 ms Q-T Interval: 374 ms QTC Calculation(Bezet): 477 ms P [place]: 42 degrees Calculated R [place]: 31 degrees Calculated T [place]: 25 degrees Diagnosis Line: Normal sinus rhythm Diagnosis Line: Possible Left atrial enlargement Diagnosis Line: Borderline ECG Diagnosis Line: When compared with ECG of 28-MAR-2017 06:47, Diagnosis Line: No significant change was found Diagnosis Line: Confirmed by MEGHANN URIBE MD ([id number]) on 05/21/2017 Diagnosis Line: 3:10:15 PM INTERPRETING MD: RONY MCCANN
--- NOTE | ~2017-05-21 | CR72 ---
[facility] A Service of [facility] & [facility] RADIOLOGY TEXT RESULTS PATIENT: RISA ADAM LOCATION: [facility] : 51 UNIT #: [id number] AGE: [address]: DANIEL THOMSON SEX: M ORDER DR: [id number] [facility] [address] [place], [place] [address] [id number] E MR#: [id number] Acc #: [id number] NAME: RISA ADAM. : 1955 SEX: M STUDY DATE/TIME: 05/21/2017 04:16 UNIT: [facility] ROOM: STUDY DESCRIPTION: CR Chest Single View Portable Attending Physician: Daniel Thomson Aprn Ordering Physician: Daniel Thomson Aprn Primary Care Physician: [facility], MEDICAL IMAGING REPORT This report is preliminary unless electronic signature is present EXAM Portable chest 05/21 at 04:16 INDICATIONS Left side chest pain today. FINDINGS AP portable chest is compared with 03/25/2017. Heart is enlarged. Lung volumes are low but the lungs are clear. No pneumothorax. There is atherosclerotic disease in the aorta. IMPRESSION Mild cardiomegaly with low lung volumes. No acute findings in the chest. Dictated by... Lamberto Packer Jr., M.D. THIS IS AN ELECTRONICALLY VERIFIED REPORT Lamberto Packer Jr., M.D. at 05/22/2017 3:15 AM NENAK/jeremias TD: 05/21/2017 21:56 JOB #: [id number] MEDICAL IMAGING REPORT Page 1 of 1 COPY
[~2017-05-21 01:52] MED LIST changes: +AMLODIPINE BESYL5 MG PO; +CARVEDILOL25 MG PO; +CHEWABLE ASPIRI81 MG PO; +LASIX PO; +LIPITOR40 MG PO; +PRINIVIL40 MG PO
[2017-05-21 03:42] LABS: BASOPHIL# 0.1 X10e3 (0-0.3); EOSINOPHIL# 0.1 X10e3 (0-0.7); EOSINOPHIL% 1.7 % (0.0-7.0); HEMATOCRIT 35.6 % (38.0-50.0); HEMOGLOBIN 11.5 gm/dL (13.0-16.0); LYMPHOCYTE# 1.7 X10e3 (1.0-3.5); LYMPHOCYTE% 20.7 % (17.0-45.0); MEAN CELL VOLUME 76.8 FL (83-96); MEAN CORPUSCULAR HEMOGLOBIN 24.8 PG (28-34); MEAN CORPUSCULAR HGB CONC 32.3 g/dL (30-36); MEAN PLATELET VOLUME 8.2 FL (6.5-11.5); MONOCYTE# 0.7 X10e3 (0-1.0); MONOCYTE% 8.1 % (3.0-12.0); NEUTROPHIL# 5.6 X10e3 (1.5-7.1); NEUTROPHIL% 68.5 % (40-75); PLATELET COUNT 183 X10e3 (140-420); RED BLOOD COUNT 4.63 X10e (3.90-5.60); WHITE BLOOD COUNT 8.2 X10e3 (4.0-10.5)
[2017-05-21 03:44] LABS: DIFF IND NO
[2017-05-21 03:57] LABS: PARTIAL THROMBOPLASTIN TIME 25.4 SECONDS (23.5-31.3); PROTHROMBIN TIME (PATIENT) 10.5 SECONDS (10.0-11.7)
[2017-05-21 04:09] LABS: ALBUMIN SERUM 4.3 g/dL (3.5-5.0); BILIRUBIN,TOTAL 0.5 mg/dL (0.2-2.0); BUN/CREATININE RATIO 17.14; CALCIUM SERUM 9.3 mg/dL (8.4-10.2); CREATININE SERUM 0.7 mg/dL (0.6-1.4); GLOM FILT RATE Estimated 100.5 mL/min (>60); POTASSIUM 3.6 mmol/L (3.5-5.1); PROTEIN TOTAL SERUM 6.9 g/dL (6.0-8.3)
[2017-05-21 04:10] LABS: BILIRUBIN, DIRECT 0.1 mg/dL (0.0-0.2); BILIRUBIN,INDIRECT 0.4 mg/dL (0.0-0.9)
[2017-05-21 04:47] LABS: POC - CKMB 2.4 ng/mL (0.0-7.9); POC - TROPONIN <0.05 ng/mL (<=0.05)
== END 2017-05-21 05:00 | disposition left against medical advice (07) ==
LOC: CED 01:52
PROVIDERS: Nurse Practitioner Family
DX: R07.89 Other chest pain (principal); R06.02 Shortness of breath; M79.89 Other specified soft tissue disorders; I10 Essential (primary) hypertension; E78.5 Hyperlipidemia, unspecified; I25.10 Atherosclerotic heart disease of native coronary artery without angina pectoris; I25.2 Old myocardial infarction; F17.210 Nicotine dependence, cigarettes, uncomplicated; Z86.73 Personal history of transient ischemic attack (TIA), and cerebral infarction without residual deficits; Z98.890 Other specified postprocedural states; Z79.82 Long term (current) use of aspirin; Z79.899 Other long term (current) drug therapy; Z88.0 Allergy status to penicillin; Z88.1 Allergy status to other antibiotic agents
CPT/HCPCS: 36415; 71010; 80048; 80076; 82553; 83880; 84484; 85025; 85610; 85730; 93005; 99285

== ENCOUNTER 2017-06-02 21:10 | Emergency (ER) | payer OTHER ==
[~2017-06-02] VITALS: Ht 185.4 cm; Wt 102.0 kg
--- NOTE | ~2017-06-02 | CT4 ---
[facility] A Service of [facility] & [facility] RADIOLOGY TEXT RESULTS PATIENT: RISA ADAM LOCATION: [facility] : 51 UNIT #: [id number] AGE: [address]: Sonny Lynch MD SEX: M ORDER DR: [id number] [facility] [address] [place], [place] [address] [id number] E MR#: [id number] Acc #: [id number] NAME: RISA ADAM : 1955 SEX: M STUDY DATE/TIME: 06/02/2017 23:41 UNIT: [facility] ROOM: STUDY DESCRIPTION: CT Abd and Pelv Wo Cont Attending Physician: Sonny Lynch M.D. Ordering Physician: Sonny Lynch M.D. Primary Care Physician: [facility] IMAGING REPORT This report is preliminary unless electronic signature is present EXAM CT abdomen and pelvis without contrast HISTORY Right flank pain for 4 hours today. Nausea and vomiting. TECHNIQUE This CT exam was performed with one or more of the following radiation dose reduction techniques: automatic control, adjustment of mA and/or kV according to patient size, and iterative reconstruction. FINDINGS CT abdomen and pelvis was performed without contrast CT ABDOMEN: There is mild right hydronephrosis and mild right ureteral dilatation. 2 tiny nonobstructing stones in the lower pole right kidney measure up to 3 mm. There is also a 3 mm nonobstructing stone in the upper pole of the left kidney. Several right renal cysts measure up to 7.3 cm in the upper pole. The liver, gallbladder, spleen, pancreas, and adrenal glands are unremarkable. No bowel dilatation. Small infrarenal abdominal aortic aneurysm measures 3.[address] PELVIS: There is a 3 mm obstructing stone in the distal right ureter 3 cm above the ureterovesical junction. No free fluid or inflammatory stranding within the pelvis. There are small bilateral inguinal hernias containing fat. Urinary bladder is unremarkable. IMPRESSION 1. 3 mm nonobstructing stone in the distal right ureter 3 cm above the ureterovesical junction causes mild right hydronephrosis and right ureteral dilatation. 2. No acute findings in the remainder of the abdomen or pelvis. 3. Normal appendix. [facility] A Service of [facility] & [facility] RADIOLOGY TEXT RESULTS PATIENT: RISA ADAM LOCATION: [facility] : 51 UNIT #: [id number] AGE: [address]: Sonny Lynch MD SEX: M ORDER DR: 4. Small nonobstructing bilateral renal stones. 5. Right renal cysts measure up to 7.3 cm. 6. Small infrarenal abdominal aortic aneurysm measures 3.2 cm. Dictated by... Patrice Pedro M.D. THIS IS AN ELECTRONICALLY VERIFIED REPORT Patrice Pedro M.D. at 06/04/2017 6:28 AM DFL/vivekr TD: 06/04/2017 02:09 JOB #: [id number] MEDICAL IMAGING REPORT Page 1 of 1 COPY
[2017-06-02 21:36] LABS: BASOPHIL# 0.1 X10e3 (0-0.3); BASOPHIL% 1.1 % (0-2.5); EOSINOPHIL# 0.1 X10e3 (0-0.7); EOSINOPHIL% 1.2 % (0.0-7.0); HEMATOCRIT 37.6 % (38.0-50.0); LYMPHOCYTE# 1.8 X10e3 (1.0-3.5); LYMPHOCYTE% 18.4 % (17.0-45.0); MEAN CELL VOLUME 76.5 FL (83-96); MEAN CORPUSCULAR HEMOGLOBIN 24.4 PG (28-34); MEAN CORPUSCULAR HGB CONC 31.9 g/dL (30-36); MEAN PLATELET VOLUME 8.2 FL (6.5-11.5); MONOCYTE# 0.8 X10e3 (0-1.0); MONOCYTE% 7.8 % (3.0-12.0); NEUTROPHIL# 7.1 X10e3 (1.5-7.1); NEUTROPHIL% 71.5 % (40-75); PLATELET COUNT 220 X10e3 (140-420); RED BLOOD COUNT 4.91 X10e (3.90-5.60); RED CELL DISTRIBUTION WIDTH 17.6 % (11.0-15.5); WHITE BLOOD COUNT 9.9 X10e3 (4.0-10.5)
[2017-06-02 21:38] LABS: DIFF IND NO
[2017-06-02 21:48] LABS: URINE SOURCE CLEAN CATCH
[2017-06-02 21:56] LABS: URINE APPEARANCE CLEAR; URINE BLOOD 2+ (NEG); URINE COLOR DK YELLOW; URINE GLUCOSE NEG (NEG); URINE KETONE TRACE (NEG); URINE LEUKOCYTE ESTERASE TRACE (NEG); URINE NITRATE NEG (NEG); URINE PH 5.5 (5-8); URINE PROTEIN 2+ (NEG); URINE SPECIFIC GRAVITY 1.027 (1.003-1.035)
[2017-06-02 22:06] LABS: BLOOD UREA NITROGEN 13 mg/dL (9-23); BUN/CREATININE RATIO 14.44; CALCIUM SERUM 9.8 mg/dL (8.4-10.2); CARBON DIOXIDE 26 mmol/L (22-31); CHLORIDE 105 mmol/L (100-111); CREATININE SERUM 0.9 mg/dL (0.6-1.4); GLOM FILT RATE Estimated 90.6 mL/min (>60); GLUCOSE FASTING 129 mg/dL (70-110); POTASSIUM 4.1 mmol/L (3.5-5.1); SODIUM 137 mmol/L (135-145)
[2017-06-02 22:21] LABS: URINE BILIRUBIN NEG (NEG)
[2017-06-02 22:38] LABS: ALBUMIN SERUM 4.4 g/dL (3.5-5.0); ALKALINE PHOSPHATASE 82 U/L (32-92); ALT (SGPT) 35 U/L (10-40); AST (SGOT) 27 U/L (10-42); BILIRUBIN,TOTAL 0.7 mg/dL (0.2-2.0); LIPASE 38 U/L (22-51); PROTEIN TOTAL SERUM 7.3 g/dL (6.0-8.3)
[2017-06-02 22:46] LABS: BILIRUBIN, DIRECT <0.1 mg/dL (0.0-0.2); BILIRUBIN,INDIRECT 0.6 mg/dL (0.0-0.9)
[2017-06-02 23:45] LABS: UWBCS1 AUWI 0-2 (0-5)
[2017-06-02 23:46] LABS: CULTURE INDICATED? YES; URINE BACTERIA AUWI 3+ (NEGATIVE)
[2017-06-02 23:47] LABS: URINE SQUAMOUS EPITHELIAL CELL FEW /[HPF]
== END 2017-06-03 00:50 | disposition home or self-care (01) ==
LOC: CED 21:10
DX: N13.2 Hydronephrosis with renal and ureteral calculous obstruction (principal); I10 Essential (primary) hypertension; E11.9 Type 2 diabetes mellitus without complications; F17.210 Nicotine dependence, cigarettes, uncomplicated; Z79.82 Long term (current) use of aspirin; Z79.899 Other long term (current) drug therapy; Z88.0 Allergy status to penicillin; Z88.1 Allergy status to other antibiotic agents
CPT/HCPCS: 36415; 74176; 80048; 80076; 81003; 83690; 85025; 87086; 96361; 96374; 96375; 99284; J1885; J2405